=== PATIENT | male | born 1990 ===

== ENCOUNTER 2017-09-18 16:28 | Emergency (ER) | payer MEDICAID ==
[2017-09-18 16:56] VITALS: BP 146/72; PULSE 78; RESP 20; TEMP 98.8; O2SAT 98
--- NOTE | 2017-09-18 17:33 | C.PDOC ---
History Of Present Illness 27 y/o male presents to the ER complaining of left ear pain associated with ringing sensation for 2 days. today started feeling dizzy with any sudden head movements or upon standing. He took OTC motion sickness medicine and "vitamins for ringing ear" and vomited shortly after. Denies fever, drainage, hearing impairment, foreign body sensation, headache, vision changes. Time Seen by Provider: 09/18/17 17:07 Chief Complaint (Nursing): ENT Problem History Per: Patient History/Exam Limitations: None Onset/Duration Of Symptoms: Days Current Symptoms Are (Timing): Still Present Severity: Moderate Past Medical History Reviewed: Historical Data, Nursing Documentation, Vital Signs Vital Signs: Last Vital Signs Temp 98.8 F 09/18/17 16:54 Pulse 78 09/18/17 16:54 Resp 20 09/18/17 16:54 BP 146/72 09/18/17 16:54 Pulse Ox 98 09/18/17 17:57 - Medical History PMH: No Chronic Diseases Surgical History: No Surg Hx Family History: States: No Known Family Hx - Social History Hx Alcohol Use: No Hx Substance Use: No - Immunization History Hx Tetanus Toxoid Vaccination: No Hx Influenza Vaccination: Yes Hx Pneumococcal Vaccination: No Review Of Systems Except As Marked, All Systems Reviewed And Found Negative. Constitutional: Negative for: Fever, Chills Eyes: Negative for: Vision Change ENT: Positive for: Ear Pain (left ear pain). Negative for: Ear Discharge Neurological: Negative for: Headache Physical Exam - Physical Exam Appears: Non-toxic, No Acute Distress Skin: Normal Color, Warm, Dry Head: Atraumatic, Normacephalic Eye(s): bilateral: Normal Inspection Ear(s): Left: TM Erythema (TM erythematous with bubbles), Other (canal erythematous), Right: Normal Nose: Normal Oral Mucosa: Moist Neck: Supple Chest: Symmetrical Cardiovascular: Rhythm Regular Respiratory: Normal Breath Sounds, No Rales, No Rhonchi, No Wheezing Extremity: Normal ROM Neurological/Psych: Oriented x3, Normal Speech ED Course And Treatment O2 Sat by Pulse Oximetry: 98 (RA) Pulse Ox Interpretation: Normal Medical Decision Making Medical Decision Making: Plan: * Amoxicillin PO * Reglan PO On reassessment, patient is resting comfortably, reports feeling better no nausea pain or dizziness. Patient has no neurologic deficit, fever, nuchal rigidity or signs of hemodynamic instability. Patient was instructed to follow up with physician/clinic in 1-2 days. Disposition Counseled Patient/Family Regarding: Diagnosis, Need For Followup, Rx Given - Disposition Referrals: Edilberto Woodall MD [Staff Provider] - Disposition: HOME/ ROUTINE Disposition Time: 17:57 Condition: GOOD Additional Instructions: Rx sent to [facility] Take antibiotic twice a day Take antivert as needed for dizziness Take Tylenol or Motrin for any fever or pain. Follow up with ENT Prescriptions: Amoxicillin 875 mg PO BID #14 tablet Meclizine [Meclizine*] 25 mg PO Q6 #30 tab Instructions: Serous Otitis Media (DC) Forms: [employer] (Kazakh) - POA Present On Arrival: None - Clinical Impression Clinical Impression: Serous otitis media - PA / [employer] / Resident Statement MD/DO has reviewed & agrees with the documentation as recorded. - Scribe Statement The provider has reviewed the documentation as recorded by the Елена Singleton Provider Attestation All medical record entries made by the Scribe were at my direction and personally dictated by me. I have reviewed the chart and agree that the record accurately reflects my personal performance of the history, physical exam, medical decision making, and the department course for this patient. I have also personally directed, reviewed, and agree with the discharge instructions and disposition.
[2017-09-18] MEDS ORDERED: Amoxicillin-Clav 500-125 mg Tab PO ONE (17:34)
== END 2017-09-18 18:06 | disposition home or self-care (01) ==
LOC: C.ER 16:28
DX: H65.92 Unspecified nonsuppurative otitis media, left ear (principal)